=== PATIENT | female | born 2000 | race Caucasian/White ===

== ENCOUNTER 2023-08-21 07:15 | Inpatient (IN) ==
--- NOTE | 2023-08-21 07:34 | History & Physical Report ---
Date of Service August 21, 2023 Assessment & Plan (1) Encounter for supervision of normal in multigravida: Plan: Patient ok to ambulate, will plan to monitor progress to determine if this is labor. History of Present Illness Chief Complaint: contractions Primary Care Provider: Charlene Horowitz MD 23yo @ 40 11/28, presented to L&D with contractions overnight. Started Q5 min, now came to L&D feeling them Q2min. First 36 week induction for SGA/IUGR.--5#9oz, so not iugr/sga Low lying placenta - RESOLVED *recheck placenta at 32wks *recheck edge of placenta at 32wks for ? synechiae - not seen at 32w New FOB Allergies Allergy/AdvReac Type Severity Reaction Status Date / Time No Known Allergies Allergy Verified 08/15/23 09:04 Home Medications Medication Instructions Recorded Confirmed Type prenat.vits,rachael,ixq-cvlk-thtqz 1 tab PO DAILY 01/05/23 08/21/23 History Patient History Medical History Anxiety Asthma Chlamydia Eczema delivery Surgical History S/P wisdom tooth extraction Family History Grandfather (Maternal) Heart disease Mother Osteoporosis Thyroid disorder Kidney stone Ovarian cyst Twin Grandmother (Maternal) Thyroid disorder Father Migraine Social History Smoking Status: Never smoker Do You Dip or Chew Tobacco: No; Hx Alcohol Use: No Hx Substance Use: No Preferred Language: Telugu Communication Ability: Effective 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 Beliefs That Will Affect Care: None marital status: Single marital status details: Ronnie Cesar glenn (30) [phone] Current Living Situation: Spouse and Family current occupational status: employed current occupation: [employer] Feels Safe at Home: Yes Safety Concerns: Feels Safe At This Time Review of Systems All systems reviewed & are unremarkable except as noted in HPI & below Physical Exam Constitutional: WD/WN, vitals as above Respiratory: normal respiratory effort, lungs clear to auscultation no respiratory distress Cardiovascular: Rate/Rhythm: regular rate and regular rhythm Gastrointestinal (Abdomen): Inspection/Auscultation: abdomen normal to inspection Percussion/Palpation: abdomen soft; abdomen nontender Gravid. No s/s chorio or abruption. Skin: no rashes, warm and dry Psychiatric: A+Ox3, euthymic affect Results & Data Vital Signs (Past 12 Hours) Vital Signs Pulse BP 08/21/23 07:27 97 H 121/69 Monitoring External Monitor FHT Cat 1 [place] Tract Q 3-5 SVE - very difficult exam, unable to fully get in for good cervical exam, however external os is 2cm dilated. Coding Level of Care Code None Diagnoses Encounter for supervision of normal in multigravida Z34.80
[2023-08-21] MEDS ORDERED: OXYTOCIN 30 UNITS/NSS 30 UNITS/500 ML BAG IV PRN ×2 (09:44→15:14)
[2023-08-21] MEDS ORDERED: LIDOCAINE 1% LOCAL 20 ML VIAL INFIL PRN (09:44)
--- NOTE | 2023-08-21 09:54 | History & Physical Report ---
Date of Service August 21, 2023 Assessment & Plan (1) Encounter for supervision of normal in multigravida: Plan: Marlene is a 23-year-old -1-1-1 currently at 40 weeks 3 days gestational age presents in labor. 1. Fetus: Category 1 tracing 2. Labor: In early labor and progressing well. Continue to monitor and will augment as needed. Plan for rupture membranes after epidural 3. GBS negative 4. Vitals: Within normal limits (2) Normal labor and delivery: History of Present Illness Primary Care Provider: Charlene Horowitz MD Marlene is a 23yo currently at 40 weeks 3 days gestational age presents in labor. uncomplicated to date. OB Labs: Blood Type O Positive 01/11/23 Antibody Screen NEGATIVE 01/11/23 Hemoglobin 12.6 g/dl (12.0-16.0) 05/31/23 Hematocrit 35.8 % (37.0-47.0) L 05/31/23 Mean Corpuscular Volume 91.6 fL (80.0-100.0) 01/14/23 Platelet Count 202 K/uL (130-400) 01/14/23 Rubella IgG Antibody Immune (Immune) 01/11/23 Rapid Plasma Reagin Nonreactive (Nonreactive) 01/11/23 Hepatitis B Surface Antigen. NON-REACTIVE (NON-REACTIVE) 01/11/23 Hepatitis C Antibody (EIA) NON-REACTIVE (NON-REACTIVE) 01/11/23 HIV (1&2) Ag and Ab Confirmation NON-REACTIVE (NON-REACTIVE) 01/11/23 Glucose 1 Hour 50 gm Load 148 mg/dl (70-130) H 05/31/23 OB Optional Labs: Chlamydia trachomatis RNA Not Detected (NotDetected) 01/11/23 Neisseria gonorrhoeae RNA Not Detected (NotDetected) 01/11/23 Allergies Allergy/AdvReac Type Severity Reaction Status Date / Time No Known Allergies Allergy Verified 08/15/23 09:04 Home Medications Medication Instructions Recorded Confirmed Type prenat.vits,rachael,yml-[id number] 1 tab PO DAILY 01/05/23 08/21/23 History Patient History Medical History Anxiety Asthma Chlamydia Eczema delivery Surgical History S/P wisdom tooth extraction Family History Grandfather (Maternal) Heart disease Mother Osteoporosis Thyroid disorder Kidney stone Ovarian cyst Twin Grandmother (Maternal) Thyroid disorder Father Migraine Social History Smoking Status: Never smoker Do You Dip or Chew Tobacco: No; Hx Alcohol Use: No Hx Substance Use: No Preferred Language: Armenian Communication Ability: Effective 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 Beliefs That Will Affect Care: None marital status: Single marital status details: Ronnie Cesar fob (30) [phone] Current Living Situation: Spouse and Family current occupational status: employed current occupation: [employer] Feels Safe at Home: Yes Safety Concerns: Feels Safe At This Time Physical Exam Genitourinary: normal external appearance Manual OB Exam: + cervical dilation (3.5), + cervical effacement 80% and + station -2 OB Exam Monitor Tracing: + external FHT monitor used, + external uterine monitor used, + category I and + normal FHT variability; no early decelerations present, no late decelerations present and no variable decelerations Results & Data Vital Signs (Past 12 Hours) Vital Signs Temp Pulse Resp BP 08/21/23 09:30 16 08/21/23 09:30 16 08/21/23 09:00 18 08/21/23 09:00 18 08/21/23 08:35 16 08/21/23 08:35 16 08/21/23 08:23 80 106/59 L 08/21/23 07:42 36.8 C 18 08/21/23 07:40 20 08/21/23 07:40 20 08/21/23 07:27 97 H 121/69 Coding Level of Care Code None Diagnoses Encounter for supervision of normal in multigravida Z34.80 Normal labor and delivery O80
[2023-08-21] MEDS: LACTATED RINGER'S 1,000 ML IV PRN ×2 (09:56→10:59)
[2023-08-21 10:14] LABS: Hematocrit (blood only) 37.5 % (37.0-47.0); Mean Corpuscular Hemoglobin 33.6 pg (25.0-34.0); Mean Corpuscular Hgb Conc 34.7 g/dL (32.0-36.0); Mean Corpuscular Volume 96.9 fL (80.0-100.0); Mean Platelet Volume 11.7 fL (9.4-12.4); Platelet Count 136 K/uL (130-400); RDW Coefficient of Variation 12.3 % (11.5-14.5); RDW Standard Deviation 43.2 fL (36.4-46.3); Red Blood Count 3.87 M/uL (4.20-5.40); White Blood Count 11.69 K/ul (4.8-10.8)
[2023-08-21] MEDS ORDERED: fentaNYL citrate PF 100 MCG/2 ML VIAL ONE (10:27)
[2023-08-21] MEDS ORDERED: ePHEDrine sulfate 50 MG/ML AMP ONE (10:27)
[2023-08-21] MEDS ORDERED: BUPIVACAINE 0.25% PF 30 ML VIAL ONE (10:28)
[2023-08-21] MEDS ORDERED: fentANYL 2 MCG/ML BUPIVacaine 0.125%-NSS 100ML BAG ONE (10:28)
[2023-08-21] MEDS ORDERED: LIDOCAINE 2%/EPINEPHRINE 1:200,000 20 ML PF ONE (10:28)
[2023-08-21] MEDS ORDERED: SODIUM CHLORIDE 0.9% PF INJ 10 ML VIAL ONE (10:28)
--- NOTE | 2023-08-21 10:59 | Anesthesiology Consultation ---
Date of Service August 21, 2023 Assessment & Plan Chart Review Chart Review: Patient NOT seen in Pre Admission Testing and Acceptable Risk for Labor Epidural Consults Requested none ASA ASA2 Proposed Anesthesia Anesthesia Type: Labor Epidural Risk / Benefits Reviewed With: PT / POA / Parent / Guardian, Accepts Plan and Informed Consent Obtained History Height/Weight Height: 5 ft 9 in Weight: 76.657 kg Allergies Allergy/AdvReac Type Severity Reaction Status Date / Time No Known Allergies Allergy Verified 08/15/23 09:04 Medications Home Medications Medication Instructions Recorded Confirmed Last Taken prenat.vits,rachael,faw-[id number] 1 tab PO DAILY 01/05/23 08/21/23 08/20/23 Active Medications Generic Name Dose Route Start Last Admin Trade Name Freq PRN Reason Stop Dose Admin Lactated Ringer's 1,000 mls @ 125 mls/hr 08/21/23 09:44 08/21/23 09:56 Lr IV 08/23/23 09:43 999 mls/hr .Q8H PRN Administration L&D Protocol Protocol NPO Date Last Intake of Fluids: 08/21/23 Time Last Intake of Fluids: 10:30 Date Last Intake of Solids: 08/21/23 Time Last Intake of Solids: 06:30 Past Medical History Medical History Anxiety Asthma Chlamydia Eczema delivery Exercise / Class Metabolic Activity II 4-5 Yardwork/Stairs/Walk up hill Past Family History Family History Grandfather (Maternal) Heart disease Mother Osteoporosis Thyroid disorder Kidney stone Ovarian cyst Twin Grandmother (Maternal) Thyroid disorder Father Migraine Past Surgical History Surgical History S/P wisdom tooth extraction Past Anesthesia History No Hx of Anesthesia Complications and No Family Hx of Anesthesia Complications History of PONV No Hx of PONV and No Hx of Motion Sickness Social History Smoking Status: Never smoker Do You Dip or Chew Tobacco: No Hx Alcohol Use: No Hx Substance Use: No substance use type: does not use Review of Systems ROS Unobtainable: All systems reviewed & are unremarkable except as noted in HPI & below Physical Exam Vital Signs Last Vital Signs Temp 36.8 C 08/21/23 07:42 Pulse 78 08/21/23 10:54 Resp 16 08/21/23 09:30 BP 106/59 L 08/21/23 08:23 Pulse Ox 99 08/21/23 10:54 ENMT Mouth: no TMJ abnormality Thyromental Distance: > or= 3.5 Finger Breadths Mallampati Class: II Mouth / Teeth: 2 1. chip 2. Chip Neck normal visual inspection and trachea midline; neck extension not limited Respiratory normal respiratory effort Auscultation: lungs clear to auscultation bilaterally Cardiovascular Rate/Rhythm: regular rate and regular rhythm Heart Sounds: no murmur Musculoskeletal Spine: normal cervical ROM Extremities: full ROM of extremities Neurologic moves all extremities Psychiatric Orientation: alert and oriented x 3 Testing Laboratory Results 08/21/23 09:57
[2023-08-21] MEDS ORDERED: BUPIVACAINE 0.25% PF 30 ML VIAL EPI PRN (11:27)
[2023-08-21] MEDS ORDERED: ePHEDrine sulfate 50 MG/ML AMP IV PRN (11:27)
[2023-08-21] MEDS ORDERED: NALOXONE HCL 0.4 MG/1 ML VIAL/CARP IV PRN (11:27)
[2023-08-21] MEDS ORDERED: NALOXONE HCL 1 MG in SODIUM CHLORIDE 0.9% 1,000 ML IV PRN (11:27)
[2023-08-21] MEDS ORDERED: diphenhydrAMINE 50 MG/ML VIAL IV PRN (11:27)
[2023-08-21] MEDS ORDERED: NALBUPHINE HCL 5 MG in SYRINGE 0 ML IV PRN (11:27)
[2023-08-21] MEDS ORDERED: SODIUM CHLORIDE 0.9% PF INJ 10 ML VIAL EPI PRN (11:27)
[2023-08-21] MEDS ORDERED: fentaNYL citrate PF 100 MCG/2 ML VIAL EPI STA (11:27)
[2023-08-21] MEDS ORDERED: LIDOCAINE 2% MPF LOCAL 5 ML VIAL EPI PRN (11:27)
[2023-08-21] MEDS ORDERED: LIDOCAINE 2%/EPINEPHRINE 1:200,000 20 ML PF EPI STA (11:27)
[2023-08-21] MEDS ORDERED: fentaNYL citrate PF 100 MCG/2 ML VIAL EPI PRN (11:27)
[2023-08-21] MEDS ORDERED: ROPIVACAINE 0.5% PF 5 MG/ML 20 ML VIAL EPI PRN (11:27)
[2023-08-21] MEDS ORDERED: BUPIVACAINE 0.25% PF 30 ML VIAL EPI STA (11:27)
[2023-08-21] MEDS ORDERED: SODIUM CHLORIDE 0.9% PF INJ 10 ML VIAL EPI STA (11:27)
[2023-08-21] MEDS ORDERED: fentANYL 2 MCG/ML BUPIVacaine 0.125%-NSS 100ML BAG EPI PRN (11:27)
--- NOTE | 2023-08-21 15:01 | Delivery Summary ---
Vaginal Delivery Summary Date of Service August 21, 2023 Vaginal Delivery Summary Marlene is a 23-year-old who presented in active labor. Patient progressed with artificial rupture of membranes for augmentation. Patient progressed to 10 cm dilated 100% effaced +2 station pushed over intact perineum with epidural anesthesia and delivered a viable male with weight and Apgars pending. Has a delivered in TRICE position transition right transverse. No nuchal cord was noted. Body and shoulders quickly followed. was noted to be vigorous upon delivery and a 1 minute delayed cord clamping was initiated. Cord was then double clamped and cut. remained on maternal abdomen. Cord blood was obtained. Attention was then turned to delivery the placenta which delivered intact with three-vessel cord gentle cord traction. On inspection of the perineum vagina and cervix there is noted to be no lacerations. Needle sponge and instrument counts were correct at the completion of the case. Both mother and stable in the immediate postdelivery period. [facility] Vaginal Delivery Charge Delivery Type Details: [facility]
[2023-08-21] MEDS ORDERED: HYDROCORTISONE ACETATE 25 MG SUPP PR PRN (15:14)
[2023-08-21] MEDS ORDERED: oxyCODONE/ACETAMINOPHEN 5mg/325mg TAB PO PRN (15:14)
[2023-08-21] MEDS ORDERED: BENZOCAINE 20% SPRY 85 APPLN/85 GM CAN EXT PRN (15:14)
[2023-08-21] MEDS ORDERED: ACETAMINOPHEN 325 MG TAB PO PRN (15:14)
[2023-08-21] MEDS ORDERED: DIPHTHERIA/TETANUS/PERTUSSIS Vaccine (Tdap, Age 7+yrs) 0.5mL SYR/VL IM ONE (15:14)
[2023-08-21] MEDS ORDERED: bisacodyL 10 MG SUPP PR PRN (15:14)
[2023-08-21] MEDS ORDERED: miSOPROStoL 200 MCG TAB PR ONE (17:09)
[2023-08-21] MEDS ORDERED: miSOPROStoL 200 MCG TAB ONE (17:23)
--- NOTE | 2023-08-21 19:17 | Anesthesia Procedure Note ---
Date of Service August 21, 2023 Anesthesia Post Epidural Note Vital Signs Vital Signs: Temp Pulse Resp BP Pulse Ox 36.7 C 96 H 16 114/59 L 96 08/21/23 11:30 08/21/23 18:25 08/21/23 16:11 08/21/23 18:25 08/21/23 14:56 Pain Intensity Lower Abdomen: Pain Intensity: 6 Notes Mental Status: alert / awake / arousable and participated in evaluation Nausea / Vomiting: adequately controlled Pain: adequately controlled Airway Patency, RR, SpO2: stable & adequate BP & HR: stable & adequate Hydration State: stable & adequate Neuraxial Anesthesia: was administered and sensory block is resolving Anesthetic Complications: no major complications apparent Epidural: Removed without complications and With tip intact
[2023-08-21] MEDS: IBUPROFEN 600 MG TAB PO PRN (19:28)
[2023-08-21] MEDS: DOCUSATE SODIUM 100 MG CAP PO SCH (21:46)
--- NOTE | 2023-08-22 04:41 | Obstetrical Progress Note ---
Date of Service <Jason Flores DO - Last Filed: 08/22/23 06:24> August 22, 2023 Assessment & Plan <Jason Flores DO - Last Filed: 08/22/23 06:24> (1) (spontaneous vaginal delivery): Plan 23 year old , PPD#1: Eating well, voiding well, ambulating well Vitals reviewed, WNL Pain well controlled with Motrin Bleeding slowing down Routine post care - OOB, ambulation, diet progression as tolerated Will have 6 week follow up with Dr. Suggs <Titus Suggs MD - Last Filed: 08/23/23 09:37> (1) (spontaneous vaginal delivery): Subjective <Jason Flores DO - Last Filed: 08/22/23 06:24> Ambulation: ambulating normally Voiding: no voiding problems Passing Gas:: Yes Diet Tolerance:: regular diet Lochia:: Large Feeding Type:: breast feeding Pain well controlled with Motirn Review of Systems -Denies fever or chills -Denies dyspnea, chest pain, or palpitations -Denies dysuria -Denies headache or changes in vision Physical Exam <Jason Flores DO - Last Filed: 08/22/23 06:24> General: Alert and oriented. No acute distress Cardiac: Regular rate and rhythm, no murmurs appreciated Respiratory: Lungs clear to auscultation bilaterally, No increased work of breathing Abdominal: Soft, non-tender, non-distended. Bowel sounds present. Uterus: Uterine fundus firm, palpable below umbilicus Extremities: No lower extremity edema, calves non-tender bilaterally Results & Data <Jason Flores - Last Filed: 08/22/23 06:24> Vital Signs (Past 12 Hours) Vital Signs Temp Pulse Pulse Resp BP BP Pulse Ox 08/22/23 03:40 36.7 C 77 16 103/68 96 08/21/23 23:38 36.7 C 78 16 100/61 97 08/21/23 19:24 37.1 C 102 H 16 112/74 97 08/21/23 18:25 96 H 114/59 L 08/21/23 18:11 101 H 112/55 L 08/21/23 17:57 85 129/67 11/28/23 17:26 75 114/61 08/21/23 17:17 81 114/62 08/21/23 16:56 83 115/64 08/21/23 16:53 88 111/75 O2 Del Method 08/22/23 03:40 Room Air 08/21/23 23:38 Room Air 08/21/23 19:24 Room Air 08/21/23 18:25 08/21/23 18:11 08/21/23 17:57 08/21/23 17:26 08/21/23 17:17 08/21/23 16:56 08/21/23 16:53 Supervising Physician <Titus Suggs MD - Last Filed: 08/23/23 09:37> Co-Signing Physician Notes Patient seen with resident and agree with the above findings and plan. Stable for discharge Resident Activity Tracking <Jason Flores DO - Last Filed: 08/22/23 06:24> Resident Involvement: Resident Care Provided Care Provided: OB Delivery
[2023-08-22 06:58] LABS: Hematocrit (blood only) 30.2 % (37.0-47.0); Hemoglobin 10.4 g/dl (12.0-16.0); Mean Corpuscular Hemoglobin 33.7 pg (25.0-34.0); Mean Corpuscular Hgb Conc 34.4 g/dL (32.0-36.0); Mean Corpuscular Volume 97.7 fL (80.0-100.0); Mean Platelet Volume 11.6 fL (9.4-12.4); Platelet Count 111 K/uL (130-400); RDW Coefficient of Variation 12.5 % (11.5-14.5); RDW Standard Deviation 44.3 fL (36.4-46.3); Red Blood Count 3.09 M/uL (4.20-5.40)
[2023-08-22] MEDS ORDERED: PRENATAL VITAMIN 1 TAB PO SCH (08:00)
[2023-08-22] MEDS: DOCUSATE SODIUM 100 MG CAP PO SCH (08:30)
[2023-08-22] MEDS: IBUPROFEN 600 MG TAB PO PRN (08:30)
[2023-08-22 10:38] VITALS: RESP 18; O2SAT 98
[2023-08-22 18:11] VITALS: BP 105/66; PULSE 73; TEMP 97.7
[2023-08-22] MEDS ORDERED: bisacodyL 5 MG TABEC PO SCH (20:00)
== END 2023-08-22 17:50 | disposition home or self-care (01) | DRG 807 ==
LOC: OPB 07:15 → 4S1 07:19 → 4E2 18:31
DX: Z3A.40 40 weeks gestation of pregnancy; O80 Encounter for full-term uncomplicated delivery; Z37.0 Single live birth